=== PATIENT | female | born 1980 | race Hispanic/Latino ===

== ENCOUNTER 2022-02-07 16:02 | Emergency (ER) | payer BC | END 2022-02-07 16:53 | disposition home or self-care (01) | LOC: BURERS 16:02 | DX: H60.92 Unspecified otitis externa, left ear (principal) | CPT/HCPCS: 99282 ==

== ENCOUNTER 2022-04-12 11:56 | Emergency (ER) | payer BC | END 2022-04-12 13:52 | disposition home or self-care (01) | LOC: BURERS 11:56 | DX: J11.1 Influenza due to unidentified influenza virus with other respiratory manifestations (principal); Z20.822 Contact with and (suspected) exposure to COVID-19 | CPT/HCPCS: 87804; 99283; U0003; U0005 ==